=== PATIENT | female | born 1995 | race Caucasian/White ===

== ENCOUNTER → 2017-11-25 | Day surgery (SDC) | payer BC ==
[~2017-11-25] VITALS: Ht 177.8 cm; Wt 82.0 kg
[~2017-11-25] MED LIST: AMPICILLIN/SULBAC 3 GM/NS 100 ML IV SCH; AUGM875T3 PO; CHLORHEXIDINE GLUCONATE 2 % 1 PACK (2 CLOTHS) TOPICAL PRN; FAMOTIDINE 20 MG/2 ML VIAL ONE; IBUP200C PO; LACTATED RINGER'S 1000 ML IV PRN; LIDOCAINE 1%/EPINEPHrine 1:100,000 SOLN 30 ML VIAL ONE; METOPROLOL TARTRATE 25 MG TAB PO PRN; MICROFIBRILLAR COLLAGEN HEMOSTAT 1 GM PKT ONE; MIDAZOLAM HCL 2 MG/2 ML VIAL ONE; MORPHINE SULFATE 4 MG/ML INJ ONE; NALOXONE HCL 0.4 MG/ML AMP ONE; OXYMETAZOLINE HCL 0.05% 15 ML NASAL SPRAY ONE; POVIDONE IODINE 5% (ANTISEPSIS KIT) 4 APPLICATIONS EACH NARE PRN; SODIUM CHLORID 0.9% 500 ML IV PRN; SUGAMMADEX SODIUM 200 MG/2 ML VIAL IV PUSH ONE; TYLE325T PO
[2017-11-25 11:40] VITALS: BP 139/92; PULSE 102; RESP 16; TEMP 98; O2SAT 98
--- NOTE | 2017-11-29 19:11 | MP ---
cc: Adriel Christiansen MD DATE OF OPERATION: 11/25/2017 DATE OF PROCEDURE: 11/25/2017 SURGEON: Adriel Christiansen MD PREOPERATIVE DIAGNOSES: 1. Chronic tonsillitis. 2. Adenotonsillar hypertrophy. 3. Nasal airway obstruction. 4. Nasal septal deviation. 5. Hypertrophy of inferior turbinates. POSTOPERATIVE DIAGNOSES: 1. Chronic tonsillitis. 2. Adenotonsillar hypertrophy. 3. Nasal airway obstruction. 4. Nasal septal deviation. 5. Hypertrophy of inferior turbinates. OPERATION PERFORMED: 1. Open repair of nasal septal fracture. 2. Bilateral submucosal resection of inferior turbinates. 3. Adenotonsillectomy. INDICATION FOR PROCEDURE: The indications are documented in the history and physical. DESCRIPTION OF PROCEDURE: The patient was taken to OR #2 and placed in the supine position. Following induction of general anesthesia and intubation, the nose was packed bilaterally with cotton pledgets saturated in 0.05% oxymetazoline. The nasal septal mucosa and inferior turbinates were injected with a total of 8 mL of 1% Xylocaine with epinephrine 1:100,000 and she was then prepped and draped for surgery. The packing was removed and a hemitransfixion incision was made in the left nasal vestibule. Through this incision, the mucosa of the septum was elevated bilaterally as far as the junction of the bony and cartilaginous septum. This exposed the quadrangular cartilage, which showed bilateral septal deviation due to displaced comminuted fragments of septal fracture, which were obstructing the airway bilaterally. A cumulative area of 2 x 2.5 cm was removed, preserving 1.5 cm dorsal and caudal cartilaginous struts. The mucosa was then elevated from the bony septum and the maxillary crest and these were removed using a Kenny-Hickman forceps and a 6 mm Oleg chisel, respectively. The incision was then closed using a running suture of 4-0 chromic and the mucosal layers of septum were approximated to each other with a quilting stitch of 4-0 plain gut. The inferior turbinates were then addressed. They were fractured out medially and stab incisions opened along their inferior surfaces. Through these incisions, the submucosal soft tissue was reduced using a curette, preserving the conchal bone. The incisions were then cauterized using a suction Bovie at 45 vargas and the remnants of the inferior turbinates were then relateralized to the lateral nasal wall. At this point, the table was turned 90 degrees and a shoulder roll and McIvor mouth gag were put in place. A #8 red rubber catheter was then advanced in through the right naris and brought out through the oral cavity to retract the soft palate. Mirror examination of the nasopharynx showed there to be marked hypertrophy of the inferior turbinates and these were removed using the suction Bovie at 45 vargas. When this was completed, the nose was then packed with 5.5 cm Rapid Rhino packs and each was inflated with 5 mL of air. Lastly, the tonsillectomy was addressed. The left side was done first using the Coblator technique. There was no bleeding on this side. Next, the right tonsil was addressed. On this side, there was evidence of old long resolved superior tonsillar abscess. On this side, the electrocautery technique was used at 35 vargas to locate the tonsillar capsule and dissect free the tonsil tissue from the scarred tonsil fossa. The area of scar extended to about the mid point of the tonsil fossa and from this point, Coblator technique was once again able to dissect through the tissue of the tonsil capsule. This continued inferiorly until the tonsil was completely mobilized and was passed off the field as specimen. The right tonsil fossa was then packed with tonsil sponge packs saturated in oxymetazoline. These were held in place with pressure for a period of about 10 minutes. They were then removed and the tonsil fossa was further cauterized using the suction Bovie at 35 vargas. Lastly, the right tonsil fossa was packed with Avitene microfibrillar. The stomach was aspirated of approximately 10 mL of cloudy gastric contents using #18 [place] NG tube. When this was completed, the mouth gag was removed and the procedure was terminated. The patient was reversed from anesthesia and taken to recovery in good condition. There were no complications and blood loss was 100 mL. MD LAZARUS Horta/JERRY , 04:01 PM , 07:10 PM
== END | disposition home or self-care (01) ==
LOC: PHSDC 06:10
PROVIDERS: ATTEND Otolaryngology
DX: J35.03 Chronic tonsillitis and adenoiditis (principal); J34.3 Hypertrophy of nasal turbinates; J34.2 Deviated nasal septum
CPT/HCPCS: 00160; 21336; 30140; 42821; 88304; J0295; J2250; J2270; J3010; J7120; J2310